=== PATIENT | male | born 1990 | race Caucasian/White ===

== ENCOUNTER 2017-09-23 13:51 | Emergency (ER) | payer SELFPAY ==
[2017-09-23 13:52] VITALS: BP 141/77; PULSE 104; PULSE 95; RESP 18; RESP 19; TEMP 36.4; O2SAT 97; BMI 27.6
--- NOTE | 2017-09-23 14:46 | ED.VISSUMM ---
- ER Visit Summary Date of Service: 09/23/17 Chief Complaint: Abscess History of Present Illness: The patient is a 27 M who states that several days ago after leaving a [facility] where he spent the night he noticed a red spot on his right posterior forearm. He states that it began to swell look like an abscess so he popped it got pus out of it but now states the skin around the area is turning red. There is any fevers. He has a history of a right axillary abscess. He denies any red streaks. Physical Examination: Afebrile vital signs are stable Right posterior forearm demonstrates a drained abscess with surrounding erythema. There is no lymphangitis. Emergency Department Course and Treatment: She will be started on Keflex and Bactrim. I will write for a few [place]. He is use warm compresses. He was advised that the abscess may return and we can require incision and drainage. Impression: 1. Right forearm abscess and cellulitis This note was generated with [employer] dictation software. It may contain incorrect words, spelling, and punctuation that were not noted in review of the chart prior to signing ED Disposition - Plan for ED Patient: Disposition: Home or Assisted Living Chief Complaint: Abscess Instructions: ED Infec Skin Cellulitis Prescriptions: Hydrocodone Bitart/Apap 5-325 [[place] 5MG-325MG] 1 tab PO Q4H PRN PRN 2 Days #10 tab PRN Reason: Pain Cephalexin [Keflex] 500 mg PO Q6 #40 cap Smz/Tmp Ds [Bactrim Ds] 1 tab PO BID #20 tab Referrals: Christelle Lozano MD [STAFF PHYSICIAN] - 3-5 Days if not improving
--- NOTE | 2017-09-23 14:54 | ED.DCSUM_ITS ---
- ER Visit Summary Date of Service: 09/23/17 Chief Complaint: Abscess History of Present Illness: The patient is a 27 M who states that several days ago after leaving a [facility] where he spent the night he noticed a red spot on his right posterior forearm. He states that it began to swell look like an abscess so he popped it got pus out of it but now states the skin around the area is turning red. There is any fevers. He has a history of a right axillary abscess. He denies any red streaks. Physical Examination: Afebrile vital signs are stable Right posterior forearm demonstrates a drained abscess with surrounding erythema. There is no lymphangitis. Emergency Department Course and Treatment: She will be started on Keflex and Bactrim. I will write for a few [place]. He is use warm compresses. He was advised that the abscess may return and we can require incision and drainage. Impression: 1. Right forearm abscess and cellulitis This note was generated with [employer] dictation software. It may contain incorrect words, spelling, and punctuation that were not noted in review of the chart prior to signing ED Disposition - Plan for ED Patient: Disposition: Home or Assisted Living Chief Complaint: Abscess Instructions: ED Infec Skin Cellulitis Prescriptions: Hydrocodone Bitart/Apap 5-325 [[place] 5MG-325MG] 1 tab PO Q4H PRN PRN 2 Days #10 tab PRN Reason: Pain Cephalexin [Keflex] 500 mg PO Q6 #40 cap Smz/Tmp Ds [Bactrim Ds] 1 tab PO BID #20 tab Referrals: Christelle Lozano MD [STAFF PHYSICIAN] - 3-5 Days if not improving
[2017-09-23 15:11] VITALS: BP 132/78; PULSE 85; RESP 16; O2SAT 98
== END 2017-09-23 15:12 | disposition home or self-care (01) ==
PROVIDERS: Emergency Provider Emergency Medicine
DX: L02.413 Cutaneous abscess of right upper limb (principal); L03.113 Cellulitis of right upper limb
CPT/HCPCS: 99282